=== PATIENT | male | born 2000 | race African-American/Black ===

== ENCOUNTER 2020-08-20 14:21 | Inpatient (IN) | payer MEDICAID ==
[~2020-08-20] VITALS: Ht 182.9 cm; Wt 66.0 kg
[2020-08-20 16:00] VITALS: BP 111/60
[2020-08-20] MEDS ORDERED: ZOLPIDEM TARTRATE 10 MG TABLET PO PRN (17:15)
[2020-08-20] MEDS ORDERED: HALOPERIDOL 5 MG TABLET PO PRN (17:15)
[2020-08-20] MEDS ORDERED: LORazepam 2 MG TABLET PO PRN (17:15)
[2020-08-21 02:06] VITALS: BP 116/40
[2020-08-21] MEDS: ACETAMINOPHEN 325 MG TABLET PO PRN (04:10)
[2020-08-21 06:05] LABS: BASOPHILS % (AUTO) 0.6 % (0.0-2.0); EOSINOPHILS % (AUTO) 2.7 % (1.0-6.0); HEMATOCRIT 42.1 % (41-53); HEMOGLOBIN 13.8 g/dL (13.5-17.5); LYMPHOCYTES # (AUTO) 1.1 K/uL (1.0-4.8); LYMPHOCYTES % (AUTO) 20.9 % (22.0-44.0); MEAN CORPUSCULAR HEMOGLOBIN 29.4 pg (26.0-34.0); MEAN CORPUSCULAR HGB CONC 32.7 G/dL (31.0-37.0); MEAN CORPUSCULAR VOLUME 90 fL (80-100); MONOCYTES # (AUTO) 0.4 K/uL (0.1-1.0); MONOCYTES % (AUTO) 7.2 % (2.0-9.0); NEUTROPHILS # (AUTO) 3.7 K/uL (1.8-7.7); NEUTROPHILS % (AUTO) 68.6 % (40.0-70.0); PLATELET COUNT (AUTO) 177 K/uL (150-450); RED BLOOD CELL COUNT(AUTO) 4.67 MIL/uL (4.50-5.90); RED CELL DISTRIBUTION WIDTH 13.3 % (11.5-14.5)
[2020-08-21 06:28] LABS: ALANINE AMINOTRANSFERASE 16 U/L (12-78); ALBUMIN 3.5 g/dL (3.4-5.0); ALKALINE PHOSPHATASE 58 U/L (46-116); ANION GAP 8 mmol/L (8-16); ASPARTATE AMINOTRANSFERASE 17 U/L (15-37); BILIRUBIN,TOTAL 0.5 mg/dL (0.1-1.0); CALCIUM, TOTAL 8.3 mg/dL (8.8-10.5); CARBON DIOXIDE 26 mmol/L (22-29); CHLORIDE 104 mmol/L (98-107); CHOL/HDL RATIO 2.3 (4.2-7.3); CHOLESTEROL 130 mg/dL (131-200); FREE T4 (FREE THYROXINE) 1.13 ng/dL (0.76-1.46); GLOMERULAR FILTR. RATE CALC > 60 mL/min (>60); GLUCOSE,RANDOM 106 mg/dL (70-110); HDL CHOLESTEROL 57 mg/dL (40-60); LDL CHOL (CALC.) 67 mg/dL (0-130); POTASSIUM 3.8 mmol/L (3.5-5.1); SODIUM SERUM 138 mmol/L (136-145); THYROID STIMULATING HORMONE 0.72 uIU/mL (0.36-3.74); TOTAL PROTEIN, SERUM 6.6 g/dL (6.4-8.2); TRIGLYCERIDES 30 mg/dL (15-150); UREA NITROGEN, BLOOD 10 mg/dL (7-18)
[2020-08-21 06:57] VITALS: BP 112/55
[2020-08-21 10:15] VITALS: BP 99/61
[2020-08-21] MEDS: OLANZapine 5 MG TABLET PO SCH ×3 (10:55→17:30)
[2020-08-21 16:00] VITALS: BP 111/66
[2020-08-22 05:07] VITALS: BP 118/75
[2020-08-22] MEDS: ACETAMINOPHEN 325 MG TABLET PO PRN ×2 (05:41→20:20)
[2020-08-22] MEDS: OLANZapine 5 MG TABLET PO SCH ×2 (07:50→17:38)
[2020-08-22] MEDS: BuPROPion HCL XL 150 MG ER TABLET PO SCH (07:50)
[2020-08-22 08:22] VITALS: BP 121/72
[2020-08-22 09:34] LABS: APPEARANCE,URINE CLEAR (CLEAR); BILIRUBIN,URINE NEGATIVE (NEGATIVE); GLUCOSE, URINE (UA) NEGATIVE (NEGATIVE); KETONES,URINE 15 mg/dL (NEGATIVE); LEUKOCYTE ESTERASE ,URINE NEGATIVE (NEGATIVE); NITRATE,URINE NEGATIVE (NEGATIVE); OCCULT BLOOD,URINE NEGATIVE (NEGATIVE); PROTEIN,URINE NEGATIVE (NEGATIVE); UROBILINOGEN,URINE 0.2 mg/dL (<=1.0)
[2020-08-22 09:40] LABS: AMPHET/METH SCREEN,URINE POSITIVE (NEGATIVE); BARBITURATE SCREEN, URINE NEGATIVE (NEGATIVE); BENZODIAZEPINES SCREEN,URINE NEGATIVE (NEGATIVE); CANNABINOID SCREEN,URINE POSITIVE (NEGATIVE); COCAINE SCREEN,URINE NEGATIVE (NEGATIVE); METHADONE SCREEN, URINE NEGATIVE (NEGATIVE); OPIATE SCREEN,URINE NEGATIVE (NEGATIVE); PHENCYCLIDINE SCREEN,URINE NEGATIVE (NEGATIVE)
[2020-08-22 16:03] VITALS: BP 136/80
[2020-08-22] MEDS: TraMADol HCL 50 MG TABLET PO PRN (20:46)
[2020-08-23 06:08] VITALS: BP 125/62
[2020-08-23 08:10] VITALS: BP 107/63
[2020-08-23] MEDS: OLANZapine 5 MG TABLET PO SCH ×2 (08:54→16:48)
[2020-08-23] MEDS: BuPROPion HCL XL 150 MG ER TABLET PO SCH (08:54)
[2020-08-23 13:51] VITALS: BP 140/86
[2020-08-23] MEDS: TraMADol HCL 50 MG TABLET PO PRN (13:51)
[2020-08-23] MEDS ORDERED: OLAN5TAB2 PO (16:47)
[2020-08-23] MEDS ORDERED: BUPR450T3 PO (16:49)
[2020-08-23] MEDS ORDERED: BUPR-93 PO (16:51)
== END 2020-08-23 17:45 | disposition home or self-care (01) | DRG 754 ==
LOC: 3EI 16:00
PROVIDERS: ADMIT Psychiatry & Neurology Psychiatry; ATTEND Psychiatry & Neurology Psychiatry
DX: F32.9 Major depressive disorder, single episode, unspecified (principal); R45.851 Suicidal ideations; F10.10 Alcohol abuse, uncomplicated; F41.9 Anxiety disorder, unspecified; I10 Essential (primary) hypertension; Z87.891 Personal history of nicotine dependence
CPT/HCPCS: 80053; 80061; 80307; 81003; 84436; 84439; 84443; 85025

== ENCOUNTER 2021-10-12 17:09 | Emergency (ER) | payer MEDICAID, OTHER ==
[~2021-10-12] VITALS: Ht 182.9 cm; Wt 68.2 kg
[~2021-10-12 17:09] MED LIST: BUPR-50 PO; OLAN5TAB52 PO
[2021-10-12 19:28] LABS: BASOPHILS % (AUTO) 0.5 % (0.0-2.0); EOSINOPHILS % (AUTO) 5.7 % (1.0-6.0); HEMATOCRIT 40.7 % (41-53); HEMOGLOBIN 13.3 g/dL (13.5-17.5); LYMPHOCYTES # (AUTO) 1.7 K/uL (1.0-4.8); LYMPHOCYTES % (AUTO) 19.5 % (22.0-44.0); MEAN CORPUSCULAR HGB CONC 32.7 G/dL (31.0-37.0); MEAN CORPUSCULAR VOLUME 89 fL (80-100); MONOCYTES # (AUTO) 0.7 K/uL (0.1-1.0); MONOCYTES % (AUTO) 7.5 % (2.0-9.0); NEUTROPHILS % (AUTO) 66.8 % (40.0-70.0); PLATELET COUNT (AUTO) 191 K/uL (150-450); RED BLOOD CELL COUNT(AUTO) 4.58 MIL/uL (4.50-5.90); RED CELL DISTRIBUTION WIDTH 13.5 % (11.5-14.5)
[2021-10-12 19:40] LABS: ANION GAP 6 mmol/L (8-16); CALCIUM, TOTAL 9.1 mg/dL (8.8-10.5); CARBON DIOXIDE 28 mmol/L (22-29); CHLORIDE 103 mmol/L (98-107); CREATININE 1.11 mg/dL (0.60-1.30); GLOMERULAR FILTR. RATE CALC > 60 mL/min (>60); GLUCOSE,RANDOM 76 mg/dL (70-110); POTASSIUM 4.3 mmol/L (3.5-5.1); SODIUM SERUM 137 mmol/L (136-145); UREA NITROGEN, BLOOD 15 mg/dL (7-18)
[2021-10-12] MEDS ORDERED: KETOROLAC TROMETHAMINE 30 MG/ML VIAL IVP ONE (19:45)
[2021-10-12] MEDS ORDERED: MORPHINE SULFATE 4 MG/ML SYRINGE IVP ONE (19:45)
[2021-10-12] MEDS ORDERED: PERTUSS(ACELL),DIPH,TET VAC/PF 0.5 ML SYRINGE IM. ONE (20:00)
[2021-10-12] MEDS ORDERED: CefTRIAXone 1 GM/DEXTROSE 50 ML IV ONE (20:00)
[2021-10-12 20:09] LABS: ALANINE AMINOTRANSFERASE 23 U/L (12-78); ALBUMIN 3.6 g/dL (3.4-5.0); ALKALINE PHOSPHATASE 94 U/L (46-116); ASPARTATE AMINOTRANSFERASE 25 U/L (15-37); BILIRUBIN,TOTAL 0.4 mg/dL (0.1-1.0); C-REACTIVE PROTEIN QUANT 1.52 mg/dL (0.00-0.30); CREATINE KINASE, TOTAL ONLY 522 U/L (39-308); TOTAL PROTEIN, SERUM 7.2 g/dL (6.4-8.2)
[2021-10-12] MEDS ORDERED: SULFAMETHOX/TRIMETH DS 800-160 MG/TABLET PO ONE (22:15)
[2021-10-12] MEDS ORDERED: CEPH-558 PO (22:16)
[2021-10-12] MEDS ORDERED: SULF-261 PO (22:17)
[2021-10-12 22:40] VITALS: BP 118/61
== END 2021-10-12 23:21 | disposition home or self-care (01) ==
LOC: EMS 17:13
DX: L03.116 Cellulitis of left lower limb (principal); F10.20 Alcohol dependence, uncomplicated; F12.90 Cannabis use, unspecified, uncomplicated
CPT/HCPCS: 99284; 73700; 96365; 93971; 96375; 80053; 82550; 83605; 85025; 86140; 87040; 90715; 90471; 36415; J0696; J1885

== ENCOUNTER 2021-12-30 18:53 | Emergency (ER) | payer OTHER ==
[~2021-12-30] VITALS: Ht 182.9 cm; Wt 70.5 kg
[~2021-12-30 18:53] MED LIST changes: -BUPR-50 PO; +CEPH-558 PO; -OLAN5TAB52 PO; +SULF-261 PO
[2021-12-30 20:09] VITALS: BP 106/71
== END 2021-12-30 20:21 | disposition home or self-care (01) ==
LOC: EMS 18:57
DX: S40.011A Contusion of right shoulder, initial encounter (principal); W01.0XXA Fall on same level from slipping, tripping and stumbling without subsequent striking against object, initial encounter; Y93.89 Activity, other specified; Y92.89 Other specified places as the place of occurrence of the external cause; Y99.8 Other external cause status
CPT/HCPCS: 99283